=== PATIENT | male | born 1990 | race Caucasian/White ===

== ENCOUNTER 2021-06-19 17:53 | Emergency (ER) | payer OTHER ==
[~2021-06-19] VITALS: Ht 190.5 cm; Wt 99.8 kg
[2021-06-19 17:53] VITALS: BP 133/72
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
== END 2021-06-19 18:59 | disposition home or self-care (01) ==
LOC: ER 17:55
DX: T65.891A Toxic effect of other specified substances, accidental (unintentional), initial encounter (principal); H10.213 Acute toxic conjunctivitis, bilateral; F17.200 Nicotine dependence, unspecified, uncomplicated; F12.90 Cannabis use, unspecified, uncomplicated; Z59.0 Homelessness; Y92.89 Other specified places as the place of occurrence of the external cause

== ENCOUNTER 2022-01-07 16:07 | Emergency (ER) | payer OTHER ==
[~2022-01-07] VITALS: Ht 182.9 cm; Wt 99.8 kg
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
[2022-01-07] MEDS ORDERED: CEPH500T PO (16:40)
[2022-01-07] MEDS ORDERED: NALO4SPR BNOSTRILS (16:42)
[2022-01-07] MEDS ORDERED: SULF1TAB48 PO (16:42)
--- NOTE | 2022-01-07 16:53 | NUR ---
PT WOUND WAS WRAPPED, DISCHARGE PAPERS AND PRESECIPTION WERE EXPLAINED TO THE PATIENT AND GIVEN TO DIAMOND. PT LEFT IN CUSTODY IN STABLE CONDITION.
== END 2022-01-07 16:55 ==
LOC: ER 16:09
DX: S71.112A Laceration without foreign body, left thigh, initial encounter (principal); F90.9 Attention-deficit hyperactivity disorder, unspecified type; F12.90 Cannabis use, unspecified, uncomplicated; Z79.899 Other long term (current) drug therapy; W26.0XXA Contact with knife, initial encounter; Y93.89 Activity, other specified; Y92.89 Other specified places as the place of occurrence of the external cause; Y99.8 Other external cause status